=== PATIENT | female | born 1995 | race Caucasian/White ===

== ENCOUNTER 2018-10-16 00:15 | Emergency (ER) | payer OTHER ==
[2018-10-16 00:40] VITALS: TEMP 98.3; BMI 41.9
--- NOTE | 2018-10-16 02:06 | PDOC ---
History of Present Illness - General Chief Complaint: Psychiatric Stated Complaint: DEPRESSION Time Seen by Provider: 10/16/18 02:06 - History of Present Illness Initial Comments: 22 year old female c/o " feeling depressed" and sleeping a lot patient has not picked up her refill of antidepressants for 2 weeks. patient denies SI or HI. denies hallucinations/ visual disturbance. reports that the reason for not picking up meds due to frequent sleeping and work. denies any other complaints at this time. Past History - Past Medical History Allergies/Adverse Reactions: Allergies No Known Allergies Allergy (Verified 10/16/18 04:05) Home Medications: Ambulatory Orders Benztropine Mesylate [Cogentin -] 0.5 mg PO DAILY 10/16/18 Benztropine Mesylate [Cogentin -] 1 mg PO HS 10/16/18 Escitalopram Oxalate [Lexapro -] 30 mg PO DAILY 10/16/18 Perphenazine [Trilafon] 8 mg PO AM 10/16/18 Perphenazine [Trilafon] 16 mg PO HS 10/16/18 Psychosocial History: Yes: other (SVT s/p ablation, RAD) - Immunization History Immunization Up to Date: Yes - Social History Smoking Status: Never smoked *Physical Exam - Vital Signs Last Vital Signs Temp Pulse Resp BP Pulse Ox 98.3 F 90 20 128/89 98 10/16/18 00:31 10/16/18 00:31 10/16/18 00:31 10/16/18 00:31 10/16/18 00:31 - Physical Exam General Appearance: Yes: Appropriately Dressed, Other (good eye contact) Respiratory/Chest: positive: Lungs Clear, Normal Breath Sounds Cardiovascular: positive: Regular Rhythm, Regular Rate Gastrointestinal/Abdominal: positive: Normal Bowel Sounds, Soft Extremity: positive: Normal Capillary Refill, Normal Inspection, Normal Range of Motion Integumentary: positive: Normal Color, Dry, Warm Neurologic: positive: Fully Oriented, Alert, Normal Mood/Affect Plan - Progress Note Progress Note: 10/16/18 06:05 patient is alseep arousable . able to answer questions directly. + eye contact denies SI/ HI denies hallucinations and delusions. 10/16/18 06:16 patient will go to walk in clinic at [facility] to get medication refill. will d/c home. patient is d/c home with friend. - Laboratory CBC & Chemistry Diagram: 10/16/18 02:28 10/16/18 02:28 - Consult/PCP Time Called: 02:00 Case Discussed with Personal Care Physician Not on Staff:: case discussed with Natali Gutierrez [employer] psychological anthropologist. recommends refiill of meds and have patient follow up with [facility] this week. patient is here with friend reese who will take patient to the pharmacy for the medication grain picker *DC/Admit/Observation/Transfer Diagnosis at time of Disposition: Elevated TSH, Schizophrenia, acute Depression Qualifiers: Depression Type: unspecified Qualified Code(s): F32.9 - Major depressive disorder, single episode, unspecified - Referrals Referrals: Martha Galeana FNP [Primary Care Provider] - - Patient Instructions Printed Discharge Instructions: Just the Blues or Clinical Depression: Making the Distinction to Get the He Additional Instructions: please follow up in [facility] today please grain picker your medication as soon as possible. - Post Discharge Activity
[2018-10-16 02:50] LABS: BASO % 0.8 % (0-2.0); HEMATOCRIT 36.6 % (32.4-45.2); HEMOGLOBIN 12.7 GM/dL (10.7-15.3); LYMPH % 20.2 % (8-40); MCHC 34.6 g/dl (32.0-36.0); MEAN CELL VOLUME 83.8 fl (80-96); MEAN PLT VOLUME 8.8 fl (7.5-11.1); PLATELET COUNT 302 K/MM3 (134-434); RBC 4.37 M/mm3 (3.60-5.2); RDW 13.3 % (11.6-15.6); WHITE BLOOD COUNT 10.8 K/mm3 (4.0-10.0)
[2018-10-16 03:02] LABS: INR 1.09 (0.83-1.09); PROTHROMBIN TIME (PATIENT) 12.9 SEC (9.7-13.0)
[2018-10-16 03:21] LABS: ALBUMIN 3.6 g/dl (3.4-5.0); ALK PHOS 87 U/L (45-117); ANION GAP 6 MMOL/L (8-16); BILIRUBIN,TOTAL 0.3 mg/dL (0.2-1); BLOOD UREA NITROGEN 11 mg/dL (7-18); CALCIUM 8.6 mg/dL (8.5-10.1); CHLORIDE 107 mmol/L (98-107); CO2 28 mmol/L (21-32); CREATININE 0.6 mg/dL (0.55-1.3); GLUCOSE,RANDOM 93 mg/dL (74-106); POTASSIUM 4.1 mmol/L (3.5-5.1); SGOT/AST 41 U/L (15-37); SGPT/ALT 92 U/L (13-61); SODIUM 141 mmol/L (136-145); TOT PROT 6.8 g/dl (6.4-8.2)
[2018-10-16 05:23] LABS: COCAINE, UR NEGATIVE ng/ml (CUTOFF=300); OPIATES, URI NEGATIVE ng/ml (CUTOFF=300); PHENCYCLIDINE,URINE NEGATIVE ng/ml (CUTOFF=25); URINE AMPHETAMINES NEGATIVE ng/ml (CUTOFF=500); URINE BARBITURATES NEGATIVE ng/ml (CUTOFF=200); URINE BENZODIAZEPINES NEGATIVE ng/ml (CUTOFF=200)
[2018-10-16 05:24] LABS: METHADONE, UR NEGATIVE ng/ml (CUTOFF=300)
[2018-10-16 06:26] VITALS: BP 128/78; PULSE 86
[2018-10-16 07:18] LABS: URINE APPEARANCE TURBID; URINE BILIRUBIN NEGATIVE (<2.0 mg/dL); URINE COLOR YELLOW; URINE GLUCOSE (UA) NEGATIVE (NEGATIVE); URINE KETONE NEGATIVE (NEGATIVE); URINE LEUK ESTERASE NEGATIVE (NEGATIVE); URINE NITRITE NEGATIVE (NEGATIVE); URINE PROTEIN 1+ (NEGATIVE); URINE UROBILINOGEN NEGATIVE mg/dL (0.2-1.0)
[2018-10-16 08:53] LABS: EPI CELLS FEW /HPF (FEW); URINE BACTERIA RARE /hpf (NONE SEEN); URINE MUCUS MANY
== END 2018-10-16 06:26 | disposition home or self-care (01) ==
LOC: JER 00:15
DX: F32.9 Major depressive disorder, single episode, unspecified (principal); F20.9 Schizophrenia, unspecified; E07.89 Other specified disorders of thyroid
CPT/HCPCS: 36415; 80053; 80307; 81003; 81015; 84443; 84703; 85025; 85610; 99282-25